=== PATIENT | male | born 1960 | race African-American/Black ===

== ENCOUNTER 2020-10-30 06:51 | Day surgery (SDC) | payer BC, OTHER ==
[2020-10-29 10:12] VITALS: BMI 54.5
[2020-10-30] MEDS ORDERED: LIDOCAINE HCL/PF 2% SDV 5ML VIAL ONE (07:09)
[2020-10-30] MEDS ORDERED: PROPOFOL 20 ML ONE ×4 (07:09)
[2020-10-30 07:44] VITALS: TEMP 98.2
[2020-10-30 09:39] VITALS: BP 123/73; PULSE 76
== END 2020-10-30 09:45 | disposition home or self-care (01) ==
LOC: FASU-ENDO 06:51
PROVIDERS: ATTEND Internal Medicine Gastroenterology
PROC: 0DBL8ZX Excision of Transverse Colon, Via Natural or Artificial Opening Endoscopic, Diagnostic (ICD-10-PCS; 2020-10-30)
PROC: 0DBP8ZX Excision of Rectum, Via Natural or Artificial Opening Endoscopic, Diagnostic (ICD-10-PCS; principal; 2020-10-30 08:37)
DX: Z86.010 Personal history of colon polyps (principal); D12.3 Benign neoplasm of transverse colon; D12.5 Benign neoplasm of sigmoid colon; K62.1 Rectal polyp
CPT/HCPCS: 82962; 88305-TC